=== PATIENT | male | born 1985 | race Caucasian/White ===

== ENCOUNTER 2017-10-07 17:16 | Emergency (ER) | payer OTHER, MEDICAID ==
[2017-10-07] MEDS: predniSONE 20 MG TAB PO ×2 (18:50→18:52)
[2017-10-07] MEDS: ALBUTEROL 0.083% (NEB) 2.5 MG/3 ML AMP HHN (18:53)
== END 2017-10-07 19:25 | disposition home or self-care (01) ==
LOC: E/R 17:16 → FTE 19:25
DX: J45.901 Unspecified asthma with (acute) exacerbation (principal)
CPT/HCPCS: 94664; 99284-25

== ENCOUNTER 2018-02-24 16:20 | Emergency (ER) | payer OTHER ==
[2018-02-24] MEDS: IBUPROFEN 600 MG TAB PO (18:07)
[2018-02-24] MEDS: DIPHTH/TET/ACEL PERTUSS (ADULT) 0.5 ML VIAL IM* (18:09)
== END 2018-02-24 19:00 | disposition left against medical advice (07) ==
LOC: FTE 16:20
DX: S61.432A Puncture wound without foreign body of left hand, initial encounter (principal); J45.909 Unspecified asthma, uncomplicated; W45.0XXA Nail entering through skin, initial encounter; Y92.89 Other specified places as the place of occurrence of the external cause; Z23 Encounter for immunization
CPT/HCPCS: 90471; 90715; 99283-25

== ENCOUNTER 2018-03-20 13:05 | Emergency (ER) | payer OTHER | END 2018-03-20 15:35 | disposition home or self-care (01) | LOC: FTE 13:05 | DX: S82.451A Displaced comminuted fracture of shaft of right fibula, initial encounter for closed fracture (principal); J45.909 Unspecified asthma, uncomplicated; X50.9XXA Other and unspecified overexertion or strenuous movements or postures, initial encounter; Y92.9 Unspecified place or not applicable | CPT/HCPCS: 29505; 73590; 73630; 99283-25 ==